=== PATIENT | female | born 1955 | race Caucasian/White ===

== ENCOUNTER 2023-09-28 18:45 | Inpatient (IN) | payer BC, SELFPAY ==
[2023-09-28] VITALS (10 sets, daily range): BP systolic 133–172; BP diastolic 75–107; BMI 25.4
--- NOTE | 2023-09-28 13:44 | ED.GENMED ---
History of Present Illness
General
Chief Complaint: Abdominal Symptoms
Source: patient, records (Records from [facility]) and spouse
Exam Limitations: none
Time Seen by Provider: 09/28/23 13:06
Nursing documentation reviewed up to this point in time: agreed with except (Except as documented-she has only had symptoms for 4 days, has not had diarrhea in fact has been constipated)
Travel History
Have you had any contact with someone who has COVID-19?: No
Do you have any symptoms of coronavirus? Fever > 100 degrees, chills, cough, shortness of breath, sore throat, loss of taste or smell, muscle aches, or headache?: No
History of Present Illness
History of Present Illness:
67-year-old female with a past medical history of hypertension, hypothyroidism who presents to the emergency department for evaluation of abdominal pain associated with nausea and vomiting. Patient reports onset of symptoms (4 days ago) at
around 1 AM�she says she woke up with significant abdominal pain and nausea and had 1 episode of vomiting. She went to ER at [facility] in [place] for evaluation of her symptoms; there she had a CT of the abdomen pelvis and lab work and was
treated symptomatically. I reviewed her CT report and it showed some dilation of the jejunum but no clear signs for bowel obstruction; she was ultimately discharged with Zofran to take as needed. Since that time she has had continued abdominal
pain which she describes as pressure sensation with occasional sharp discomfort. Symptoms are worse when she tries to take food or drink by mouth she says. No relieving factors noted. Associated nausea and multiple episodes of vomiting
particularly when she tries to eat or drink something. She has had constipation�she says she has not had a bowel movement in the past 4 days. She is still passing scant amount of stool. She did try a suppository today for constipation but was not
able to have a bowel movement and did not have any relief of her symptoms. She has not had any fever or chills. Has not had any urinary symptoms. Has not had similar symptoms in the past. She does have a prior surgical history of ,
bladder surgery, hysterectomy.
Review of Systems
Review of Systems
All Other Systems: ROS reviewed and negative except as documented in HPI and ROS
Constitutional: Denies fever or chills
EENT: Denies sore throat or runny nose
Respiratory: Denies cough or trouble breathing
Cardiac: Denies chest pain or palpitations
ABD/GI: Reports abdominal pain, nausea, vomiting and constipated; Denies diarrhea
: Denies dysuria, frequency or flank pain
Musculoskeletal: Denies neck pain or back pain
Neurological: Denies headache, weakness or numbness
Phy Exam
Physical Exam
Physical Exam:
General: Awake, alert, oriented x3; no acute distress
Head: Normocephalic, atraumatic
Eyes: Conjunctiva normal, sclera anicteric
Throat: Airway intact, handling secretions
Neck: Trachea midline, supple without meningismus
Lungs: Clear to auscultation bilaterally, no wheezing, rales, rhonchi
Heart: Regular rate and rhythm, no murmurs, gallops, or rubs
Abd: Soft, slightly distended, diffusely tender somewhat worse periumbilical and left lower quadrant; tiny umbilical hernia easily reducible
Neuro: No gross deficits
Skin: no rash
Extremities: No edema in extremities, equal pulses in all extremities
Scores
Heart Failure Risk
Heart Failure Risk Score: Not Applicable
Heart Score for Chest Pain Patients
STEMI patient?: Not applicable
Withdrawal Assessment of Alcohol
Withdrawal Assessment Completed?: Not applicable
Course
Orders/Labs/Results
Orders:
Orders
09/28/23 13:43
Urinalysis Reflex To Culture Urgent
Date Specimen was Collected: 09/28/23
Time Specimen was Collected: 18:14
Iohexol [Omnipaque] See Protocol PO NOW STA
Morphine Sulfate 4 mg IV NOW STA
Ondansetron Injectable [Zofran] 4 mg IV NOW STA
09/28/23 13:44
CT Abd/pel W Iv And Oral Contr Urgent
Comment:
Reason For Exam: abd pain, distention, N/V, constipation
0.9% Sodium Chloride 1000 ml [Nss] 1,000 ml IV BOLUS
09/28/23 14:00
Complete Blood Count/With Diff Urgent
Comprehensive Metabolic Panel Urgent
Lactate Level [Lactic Acid] Urgent
Lipase Urgent
Magnesium Urgent
09/28/23 17:57
Consult Surgery [SURGICAL CONSULT] Urgent
Consulting Provider: Wally East
Was physician already notified: Yes
NG Tube [GI tube insertion- Treatment] ONCE
09/28/23 18:13
Admit/Transfer Patient As Directed
Co-Sign Provider:
Level of Care: Inpatient admission
Assign to:: Medical/Surgical
Physician / Group: Rubin
Diagnosis: Small Bowel Obstruction
Reason for Hospitalization: NGT, IVFs, Surgical consult
Expected length of stay greater than two midnights?: Yes
ELOS- Estimated Length of Stay in days: 3
I certify the patient meets the requirements for IP care: Yes
ECG [Electrocardiogram (*1)] Urgent
Reason for Study: Abdominal Pain
09/28/23 18:14
Code Status As Directed
Resuscitation Status: Full Code
Abnormal Lab Results
09/28/23
14:00
MPV 12.4 H fL
(7.4-10.4)
Absolute Monos (auto) 0.7 H 10^3/uL
(0.1-0.6)
Sodium 134 L mmol/L
(135-145)
Chloride 93 L mmol/L
(98-107)
BUN 36 H mg/dl
(7-17)
Creatinine 1.2 H mg/dL
(0.6-1.0)
Total Bilirubin 1.4 H mg/dl
(0.2-1.3)
09/28/23 14:00
09/28/23 14:00
Vital Signs
Initial and Last Documented VS:
Initial Vital Signs
Pulse Resp BP Pulse Ox
106 18 135/82 98
09/28/23 12:35 09/28/23 12:35 09/28/23 12:35 09/28/23 12:35
Last Documented Vital Signs
Pulse Resp BP Pulse Ox
106 18 163/96 99
09/28/23 12:35 09/28/23 12:35 09/28/23 16:00 09/28/23 16:01
MDM/Problems Addressed
Differential Diagnosis Includes:
Bowel obstruction, enteritis, ileus, constipation, diverticulitis
MDM/Problems Addressed:
67-year-old female presents for evaluation of abdominal pain associate with nausea, vomiting and constipation that started on . Had CT on at [facility] which showed some dilation of the jejunum but no clear signs of a bowel
obstruction no other acute pathology. Symptoms progressed since then. Normotensive but tachycardic, otherwise normal vitals. Physical exam as above. Plan to place an IV send labs including CBC, CMP, lipase. Check urinalysis. Will send for a CT
of the abdomen pelvis with p.o. and IV contrast. Will treat symptomatically and provide fluids. Monitor closely reassess after the above.
Labs reviewed: CBC unremarkable, CMP shows creatinine 1.2. Lactate normal. CT of the abdomen pelvis shows signs consistent with small bowel obstruction related to Spegelian hernia in the left lower abdomen. Attempted reduction unsuccessfully in
ED. Discussed case with surgery for consultation�they will plan for OR this evening and admit to their service. Will place NG tube here in ER.
Chronic conditions affecting care:
Multiple prior abdominal surgeries�higher risk for bowel obstruction
Acute Exacerbation and/or Progression of Chronic Illness:
Acutely hypertensive
Acute Exacerbation and/or Progression of Chronic Illness: HTN
*Radiology
Radiology exam reviewed: radiology read reviewed
*Pulse Oximetry
Patient hypoxic: no
*Critical Care Note
Total Time (30-74mins, 75-104mins- exclusive of procedures): Not Applicable
Data Reviewed
Review of Other/Old Records Reveals: Records (Reviewed external records from [facility] including lab work and CT report)
Source: patient and spouse
Patient Management
Discussion with other providers: Electronic Gluer (Discussed with general surgery)
Escalation/DeEscalation of care consider admission/obs:
Admission indicated
ED Attending Note
-
Portions of this chart may have been created with voice recognition software.� Occasional wrong word or��sound alike� substitutions may have occurred due to the inherent limitations of voice recognition software.
Discharge Plan
Departure
Patient Disposition: Admit
Date of Disposition: 09/28/23
Time of Disposition: 18:03
Admit to doctor: Cruzito
Presentation/result/management discussed w/ accepting MD/DO: surgery
Discharge Problem:
Small bowel obstruction, Spigelian hernia
Referrals:
Hannah Rodríguez MD [Family Provider] -
Interventions
Interventions:
*Risk Screen - Suicide Last Done: 09/28/23 13:30
*General Assessment Last Done: 09/28/23 13:30
*Neglect/Abuse Screening Last Done: 09/28/23 13:30
*ED COVID-19 Vaccine History Last Done: 09/28/23 12:35
HN-Kzivza-Aefwzltury Assessment Last Done: 09/28/23 13:30
Discharge Date and Time
Print Language: TURKISH
[2023-09-28] MEDS: ZOFRAN 4 MG IV (14:10)
[2023-09-28] MEDS: OMNIPAQUE 50 ML PO (14:11)
[2023-09-28] MEDS: MORPHINE SULFATE 4 MG IV (14:11)
[2023-09-28] MEDS: NSS 1000 IV ×2 (14:12→21:07)
[2023-09-28 14:17] LABS: % Basophils 0.6 % (0-2); % Eosinophils 0.9 % (0-6); % Immature Granulocytes 0.2 % (0-0.5); % Monocytes 7.8 % (1.7-9.3); % Neutrophils 63.5 % (42.2-75.2); Absolute Basophils 0.1 10^3/uL (0-0.2); Absolute Eosinophils 0.1 10^3/uL (0-0.7); Absolute Lymphocytes 2.4 10^3/uL (1.2-3.4); Absolute Monocytes 0.7 10^3/uL (0.1-0.6); Absolute Neutrophils 5.6 10^3/uL (1.4-6.5); Hematocrit 44.6 % (37.0-47.0); Mean Corp Hgb Conc. 33.6 g/dL (33.0-37.0); Mean Corpuscular Hgb 30.2 pg (27.0-31.0); Mean Corpuscular Volume 89.9 fL (81.0-99.0); Mean Platelet Volume 12.4 fL (7.4-10.4); Nucleated Red Blood Cells % 0 %; Platelet Count 149 10^3/uL (130-400); Red Blood Cell Count 4.96 10^6/uL (4.20-5.40); Red Cell Dist. Width 13.7 % (11.5-14.5); White Blood Cell Count 8.8 10^3/uL (4.8-10.8)
[2023-09-28 14:31] LABS: Albumin 4.6 g/dl (3.5-5.0); Carbon Dioxide 29 mmol/L (22-30); Estimated Creatinine Clearance 38 ml/min; Total Bilirubin 1.4 mg/dl (0.2-1.3); Total Protein 7.6 g/dl (6.3-8.2); eGFR 49.92
[2023-09-28 14:45] LABS: ALT (SGPT) 14 U/L (0-35); AST (SGOT) 29 U/L (14-36); Alkaline Phosphatase 84 U/L (38-126); Blood Urea Nitrogen 36 mg/dl (7-17); Calcium 9.8 mg/dl (8.4-10.2); Chloride 93 mmol/L (98-107); Glucose 95 mg/dl (70-99); Sodium 134 mmol/L (135-145)
[2023-09-28 15:24] LABS: Lipase 164 U/L (23-300)
--- NOTE | 2023-09-28 18:42 | PHANOTE ---
Med Rec Note:
Unable to confirm a recent fill for Carvedilol 40mg, Dr demarco shows last fill for this med on 10/20/22, [facility] closed at time of interview. Called [facility] (Pharmacist Line [phone]), they do not fill this medication.
[2023-09-28 18:58] LABS: Urine Albumin Trace (Neg - Trace); Urine Bilirubin 1+ (Negative); Urine Character Clear (Clear); Urine Color Yellow; Urine Glucose Negative (Negative); Urine Ketone 2+ (Negative); Urine Leukocyte Negative (Negative); Urine Nitrite Negative (Negative); Urine Occult Blood Negative (Negative); Urine Specific Gravity 1.015 (<1.030); Urine Urobilinogen Negative (Neg - 1+)
--- NOTE | 2023-09-28 19:02 | HPS.HSE ---
Family Physician
-
Family Physician: Hannah Rodríguez
Chief Complaint
-
Abdominal pain nausea vomiting
History of Present Illness
Patient is a 67-year-old female who was working early in the a.m. on when she began taking note of acute onset left-sided abdominal pain and crampiness. She observed it into Friday when she began developing nausea vomiting. She saw her
primary care physician and was referred for emergency department evaluation elsewhere. Workup was unremarkable and she was discharged. Through the weekend she is continued with persistent swelling and discomfort localized to the left lower
quadrant with intermittent colicky abdominal pain and recurrent nausea vomiting unable to tolerate any p.o. intake. She comes to the [facility] emergency department now for evaluation and workup is notable for an incarcerated left-sided
spigelian hernia
Medical History
Past Medical History
Past Medical History: Reports HTN, Hypercholesterolemia, Hypothyroidism, Psychiatric and Other (Osteopenia)
Past Surgical History: Reports Other ( complicated by bladder injury; robotic assisted laparoscopic hysterectomy)
Social History
Tobacco: Non-smoker
Alcohol: None
Employment: Employed
Family History
Family History: Not pertinent
Allergies / Home Medications
Allergies reflects when Allergies were last updated in [facility].
Home Medications with original date entered in [facility]
Allergy/Medication List:
Allergies
Allergy/AdvReac Type Severity Reaction Status Date / Time
No Known Allergies Allergy Verified 09/28/23 12:39
�Medication �Instructions �Recorded �Confirmed �Type
Adrenotone 1 cap PO DAILY 09/28/23 09/28/23 History
DHEA 1 cap PO QPM 09/28/23 09/28/23 History
Hcystene 1 cap PO QPM 09/28/23 09/28/23 History
Strontium 1 cap PO DAILY 09/28/23 09/28/23 History
Vitamin D Plus K2 1 tab PO DAILY 09/28/23 09/28/23 History
carvedilol phosphate 40 mg 40 mg PO QPM 09/28/23 History
capsule,ext.[id number] multiphase
melatonin 1 cap PO QPM 09/28/23 09/28/23 History
naproxen 500 mg tablet 500 mg PO BID 09/28/23 09/28/23 History
ondansetron HCl 4 mg tablet 4 mg PO DAILY PRN nausea/vomiting 09/28/23 09/28/23 History
phosphatidylserine 1 cap PO QPM 09/28/23 09/28/23 History
rosuvastatin 5 mg tablet 5 mg PO QPM 09/28/23 09/28/23 History
sertraline 100 mg tablet 100 mg PO DAILY 09/28/23 09/28/23 History
sucralfate 1 gram tablet 1 g PO BID 09/28/23 09/28/23 History
telmisartan 80 mg tablet 80 mg PO QPM 09/28/23 09/28/23 History
thyroid (pork) 15 mg tablet (FINISHED HARDWARE E[employer]OR 15 mg PO DAILY 09/28/23 09/28/23 History
Thyroid)
thyroid (pork) 60 mg tablet (FINISHED HARDWARE ERECTOR 60 mg PO DAILY 09/28/23 09/28/23 History
Thyroid)
Review of Systems
-
History Source: Patient
A 12 point ROS was completed and negative except as noted: Yes
Physical Exam
Vital Signs
Vital Signs
Temp Pulse Resp BP Pulse Ox
98.3 F 106 18 163/96 99
09/28/23 19:01 09/28/23 12:35 09/28/23 12:35 09/28/23 16:00 09/28/23 16:01
Physical Exam
General: Well Developed, Well Nourished, No Apparent Distress, Comfortable and Conversant
HEENT: NormoCephalic, Anicteric, Moist mucous membranes and Atraumatic
Respiratory: Non Labored Respirations
Cardiac: Regular Rhythm
GI: Soft, Tender (Tenderness on palpation localizing left lower quadrant but no rebound rigidity or guarding.), Distended (Mild) and Other (Left lower quadrant Spigelman hernia, incarcerated)
Skin: Warm
Neuro: AO x 3
Psych: Calm
Laboratory Results
-
09/28/23 14:00
09/28/23 14:00
Laboratory Results
Lactic Acid 1.0 mmol/L (0.7-2.0) 09/28/23 14:00
Total Bilirubin 1.4 mg/dl (0.2-1.3) H 09/28/23 14:00
AST 29 U/L (14-36) 09/28/23 14:00
ALT 14 U/L (0-35) 09/28/23 14:00
Alkaline Phosphatase 84 U/L (38-126) 09/28/23 14:00
Lipase 164 U/L (23-300) 09/28/23 14:00
Data Reviewed
-
CT Scan: Image Personally Visualized and interpreted, Report Reviewed by me, Discussed with Physician, Discussed with Patient and Discussed with Family
Lab Data: Labs Reviewed by me
Impression/Plan
-
IMPRESSION: 67-year-old female presenting with acutely incarcerated left-sided spiculated hernia with secondary small bowel obstruction and probable strangulation.
Acute kidney injury secondary to dehydration with BUN 36 and creatinine of 1.2
Hyponatremia and hypochloremia secondary to nausea vomiting
Past medical history hypertension, hypothyroidism, osteopenia, hypercholesterolemia
Reviewed with patient and her significant other at bedside CT imaging and physical examination consistent with incarcerated left-sided spigelian hernia with resultant small bowel obstruction and presumed high risk for strangulation given acute event
started 3 days ago.
Given high risk for bowel compromise/threat recommended urgent surgical intervention. Open repair left-sided incarcerated spigelian hernia, probable small bowel resection, possible mesh. We discussed anticipated operative procedure and potential
operative findings in detail including her management. Reviewed alternative treatment options, benefits and potential risk such as but not limited to bleeding, infectious or wound related complications, iatrogenic injury to surrounding viscera,
anastomotic related complications. We discussed typical postoperative recovery and hospitalization including but not limited to Washington catheter for surgery, NG tube placement, postoperative bowel rest awaiting GI recovery.
Any of the patient's or her spouse's concerns or questions were fully addressed and written informed consent was obtained.
PLAN: Admit
OR team called -open repair incarcerated left spiculated hernia with probable small bowel resection
Invanz on-call to the OR
[place] will be placed intraoperatively
NG tube placement intraoperatively
IV fluid resuscitation perioperatively
SCDs for VTE prophylaxis
--- NOTE | 2023-09-28 20:54 | W.SUR.PREOP ---
Pre-Operative Surgical Note
-
I have examined this patient prior to the performance of the scheduled procedure.
The patient's condition is unchanged from the time of the current History and
Physical and the patient is able to undergo the scheduled procedure.
--- NOTE | 2023-09-28 20:55 | W.IMMPOSTOP ---
Addendum entered and electronically signed by Wally East MD 09/28/23 21:19:
#[id number]
Original Note:
Surgical Immed Post Op Note
-
Primary Surgeon: Cruzito
Assisting Surgeon: None
Pre-op Diagnosis: Incarcerated LLQ spigelian hernia with SBO and probable strangulation
Post-op Diagnosis: Incarcerated LLQ spigelian hernia with SBO and strangulation
Procedure Performed: Open primary repair incarcerated LLQ spigelian hernia; small bowel resection
Anesthesia Type: GETA + 1% lido w/ epi/0.25% Marcaine
Specimen / Cultures: segment small bowel
Estimated Blood Loss: 12mL
Complications: none immediate
Operative Findings: incarcerated left spigelian hernia ~2cm defect; short segment SB incarcerated with resultant stricture. proximal and distal areas strictured with signs of ischemia from being incarcerated 72+hrs. SBR with side to side stapled
anastomosis. primary repair of hernia.
Plan: IVF hydration, NGT decompression until GI recovery, Washington until ambulating and post op pain controlled as well as monitoring I/O's overnight
updated post op in [facility]
[2023-09-28] MEDS: LOPRESSOR 55 MG IV (23:27)
[2023-09-29] VITALS (7 sets, daily range): BP systolic 99–137; BP diastolic 60–73
--- NOTE | 2023-09-29 04:18 | PTCARENOTE ---
Pt admitted to 2S @ approximately 2200. pain rating at 2-3 out of 10 at incision site which pt states is acceptable. Surgical glue intact at incision site. NSS infusing at 110mL/hr per order. NG tube to low intermittent suction, drainage
black/red/green. Washington in place, draining clear light yellow urine. Apical pulse regular.
[2023-09-29] MEDS: LOPRESSOR 55 MG IV ×4 (04:53→21:22)
[2023-09-29 05:01] LABS: Hematocrit 35.4 % (37.0-47.0); Mean Corp Hgb Conc. 33.6 g/dL (33.0-37.0); Mean Corpuscular Hgb 30.6 pg (27.0-31.0); Mean Platelet Volume 12.7 fL (7.4-10.4); Platelet Count 137 10^3/uL (130-400); Red Blood Cell Count 3.89 10^6/uL (4.20-5.40); Red Cell Dist. Width 13.9 % (11.5-14.5); White Blood Cell Count 14.3 10^3/uL (4.8-10.8)
[2023-09-29 05:06] LABS: Hemoglobin 11.9 g/dL (12.0-16.0)
[2023-09-29 05:25] LABS: Blood Urea Nitrogen 27 mg/dl (7-17); Calcium 8.3 mg/dl (8.4-10.2); Carbon Dioxide 24 mmol/L (22-30); Chloride 95 mmol/L (98-107); Estimated Creatinine Clearance 46 ml/min; Glucose 87 mg/dl (70-99); Potassium 3.9 mmol/L (3.5-5.1); Sodium 133 mmol/L (135-145); eGFR > 60.00
[2023-09-29 05:33] LABS: Hematocrit 34.1 % (37.0-47.0); Hemoglobin 11.4 g/dL (12.0-16.0)
[2023-09-29] MEDS: NSS 1000 IV ×2 (07:51→14:01)
[2023-09-29] MEDS: PROTONIX IV 40 MG IV (07:55)
[2023-09-29] MEDS: NSS (PRESERVATIVE FREE) 10 ML IV (07:55)
[2023-09-29] MEDS: OFIRMEV 100 IV ×2 (08:12→22:22)
--- NOTE | 2023-09-29 10:03 | W.PN.GS2 ---
Today's Communication / Plan
-
NPO with NGT
Continue IVF
Assessment / Plan
-
This is a 67-year-old female with h/o hypothyroid/htn who presented with acutely incarcerated left-sided spigelian hernia with secondary small bowel obstruction and strangulation.
POD #1 Open primary repair incarcerated LLQ spigelian hernia; small bowel resection
KRISTY secondary to dehydration: resolved. Continue IVF
Hyponatremia/hypochloremia/hypocalcemia are mild and secondary to poor po intake/GI losses/dehydration
Mild acute anemia post operatively likely from expected intraoperative losses and hemodilution
AFVSS
NGT with bilious outputs/await GI recovery
--Continue NPO with NGT to LIWS
--Continue IVF
--Multimodal analgesics
--IV metoprolol scheduled until able to resume PO carvedilol, place telemetry as per protocol
--Holding PO home meds
--Continue salinas likely through today, VT once UO increased
--Lovenox/SCD's for VTE ppx
Subjective Data
-
Date of Service: September 29, 2023
Patient seen and examined at bedside with Dr. Velazco. Derek n/v. Some generalized abdominal discomfort/soreness. No passage of flatus or stool as of yet.
Objective Data
-
Intake and Output
09/28/23 09/29/23 09/30/23
06:59 06:59 06:59
Intake Total 320 / 320
Output Total 715 / 715
Balance -395 / -395
Intake:
Oral fluids 180 / 180
IV fluids (Total) 50 / 50
normo 50 / 50
Amount instilled into GI Tube ( 90 / 90
Total)
Searcy Sump 90 / 90
Output:
Gastrointestinal tube output ( 340 / 340
Total)
Searcy Sump 340 / 340
Urine, Salinas 375 / 375
Vital Signs
Temp Pulse Resp BP Pulse Ox
97.7 F 69 18 146/76 96
09/29/23 07:30 09/29/23 09:48 09/29/23 07:30 09/29/23 09:48 09/29/23 08:00
Lab Results
09/29/23 05:22
09/29/23 04:06
Calcium 8.3 mg/dl (8.4-10.2) L D 09/29/23 04:06
Magnesium 2.0 mg/dl (1.6-2.3) 09/28/23 14:00
Total Bilirubin 1.4 mg/dl (0.2-1.3) H 09/28/23 14:00
AST 29 U/L (14-36) 09/28/23 14:00
ALT 14 U/L (0-35) 09/28/23 14:00
Alkaline Phosphatase 84 U/L (38-126) 09/28/23 14:00
Total Protein 7.6 g/dl (6.3-8.2) 09/28/23 14:00
Albumin 4.6 g/dl (3.5-5.0) 09/28/23 14:00
Physical Exam
-
NAD
ABD soft, mild distention, expected incisional tenderness. NGT with bilious drainage
Incisional dressing intact
--- NOTE | 2023-09-29 10:11 | CM ---
Initial assessment completed with patient who lives with her in a 2 story townhouse with no basement, 1 step to enter, B/B on and 1/2 bath on . [employer] patient was independent and drove, does not work. She has a SPC in the home but does
not use, no in-home services. No history of psychiatric hospitalizations. No HC POA. Pharmacy is [facility] [address] [facility] in [place]. PCP is Dr. Lisset Rodríguez. Anticipate no needs at discharge. Will continue to follow should needs change.
[2023-09-29] MEDS: LOVENOX 40 MG SC (17:05)
[2023-09-29] MEDS: DILAUDID 0.25 MG IV (17:05)
[2023-09-30] MEDS: NSS 1000 IV ×3 (00:04→17:01)
[2023-09-30 03:30] VITALS: BP 130/72
[2023-09-30] MEDS: LOPRESSOR 55 MG IV ×4 (04:52→20:59)
[2023-09-30 05:55] LABS: Hematocrit 26.1 % (37.0-47.0); Hemoglobin 8.7 g/dL (12.0-16.0); Mean Corp Hgb Conc. 33.3 g/dL (33.0-37.0); Mean Corpuscular Hgb 30.5 pg (27.0-31.0); Mean Corpuscular Volume 91.6 fL (81.0-99.0); Mean Platelet Volume 12.9 fL (7.4-10.4); Platelet Count 94 10^3/uL (130-400); Red Blood Cell Count 2.85 10^6/uL (4.20-5.40); Red Cell Dist. Width 14.1 % (11.5-14.5); White Blood Cell Count 7.2 10^3/uL (4.8-10.8)
[2023-09-30 06:22] LABS: Blood Urea Nitrogen 24 mg/dl (7-17); Calcium 7.7 mg/dl (8.4-10.2); Carbon Dioxide 24 mmol/L (22-30); Chloride 102 mmol/L (98-107); Estimated Creatinine Clearance 51 ml/min; Glucose 76 mg/dl (70-99); Potassium 3.5 mmol/L (3.5-5.1); Sodium 133 mmol/L (135-145); eGFR > 60.00
[2023-09-30 07:30] VITALS: BP 135/70
[2023-09-30] MEDS: PROTONIX IV 40 MG IV (07:33)
[2023-09-30] MEDS: NSS (PRESERVATIVE FREE) 10 ML IV (07:34)
--- NOTE | 2023-09-30 08:13 | W.PN.GS2 ---
Addendum entered and electronically signed by Lenny Capellan MD 09/30/23 13:50:
Hb stable and platelets improved. No further work-up or management changes from GS perspective.
NGT clamped for 4 hours with no symptoms and minimal output on return to suction. NGT removed.
Addendum entered and electronically signed by Lenny Capellan MD 09/30/23 09:10:
Acute anemia multifactorial blood loss and hemodilution
Original Note:
Today's Communication / Plan
-
--Repeat CBC this afternoon given Hb and platelet drop
--Clamp trial of NGT
--Pain control: Tylenol, IV Dilaudid PRN, holding on Toradol given KRISTY
--Washington removed, DTVI
Assessment / Plan
-
Patient is a 67 yo F p/w acutely incarcerated left-sided spigelian hernia with secondary small bowel obstruction and strangulation.
POD#2 Open primary repair incarcerated LLQ spigelian hernia; small bowel resection
KRISTY secondary to dehydration: resolved. Continue IVF
Hyponatremia/hypochloremia/hypocalcemia are mild and secondary to poor PO intake/GI losses/dehydration
Mild acute anemia post operatively likely from expected intraoperative losses and hemodilution, recheck ordered for this afternoon, asymptomatic and HR BP stable
Thrombocytopenia, would consider HIT if true drop on repeat CBC
NGT with minimal non-bilious outputs. Passing some flatus. Plan for clamp trial today.
--Repeat CBC this afternoon given Hb and platelet drop
--Clamp trial of NGT
--Continue IVF
--Pain control: Tylenol, IV Dilaudid PRN, holding on Toradol given KRISTY
--IV Metoprolol scheduled until able to resume PO Carvedilol, place telemetry as per protocol
--Holding PO home meds
--Washington removed, DTV
--Lovenox/SCD's for VTE ppx
--PPI for GI
Subjective Data
-
Date of Service: September 30, 2023
Feels improved, less pain. No nausea or vomiting. No worsening abdominal distention or bloating. Reports passing small amounts of flatus, no BM. Minimal ambulation. Washington removed, due to void. No fevers. No dizziness or lightheadedness.
Objective Data
-
Intake and Output
09/29/23 09/30/23 10/01/23
06:59 06:59 06:59
Intake Total 320 / 320 3130 / 3130
Output Total 715 / 715 1025 / 1025
Balance -395 / -395 2104 / 5
Intake:
Oral fluids 180 / 180 0 / 0
IV fluids (Total) 50 / 50 2640 / 2640
normo 50 / 50
IV piggybacks 310 / 310
Amount instilled into GI Tube ( 90 / 90 180 / 180
Total)
Pickett Sump 90 / 90 180 / 180
Output:
Gastrointestinal tube output ( 340 / 340 375 / 375
Total)
Pickett Sump 340 / 340 375 / 375
Urine, [place] 375 / 375 650 / 650
Vital Signs
Temp Pulse Resp BP Pulse Ox
98.8 F 57 16 130/72 97
09/30/23 03:30 09/30/23 03:30 09/30/23 03:30 09/30/23 04:52 09/30/23 03:30
Lab Results
09/30/23 05:26
Calcium 7.7 mg/dl (8.4-10.2) L 09/30/23 05:26
Magnesium 2.0 mg/dl (1.6-2.3) 09/28/23 14:00
Total Bilirubin 1.4 mg/dl (0.2-1.3) H 09/28/23 14:00
AST 29 U/L (14-36) 09/28/23 14:00
ALT 14 U/L (0-35) 09/28/23 14:00
Alkaline Phosphatase 84 U/L (38-126) 09/28/23 14:00
Total Protein 7.6 g/dl (6.3-8.2) 09/28/23 14:00
Albumin 4.6 g/dl (3.5-5.0) 09/28/23 14:00
Physical Exam
-
Gen: NAD
HEENT: non-bilious gastric outputs
Abd: soft, mild/moderate tenderness to palpation, minimal distension, tympanitic in upper abdomen, non-peritoneal, incision c/d/i - no erythema, ecchymosis or drainage
--- NOTE | 2023-09-30 08:49 | PN.CDI ---
CDI
- -
CDI:
Physician Documentation Request
Admit Date: 09/28/23 18:45
Dear Doctor Marilia,
Patient admitted with a hernia.
09/29 General Surgery PN: 'Mild acute anemia post operatively likely from expected intraoperative losses and hemodilution, recheck ordered for this afternoon, asymptomatic and HR BP stable'
Laboratory Tests
09/28/23 09/29/23 09/30/23
14:00 04:06 05:25
Hgb 15.0 11.9 L 8.7 L
Hct 44.6 35.4 L 26.1 L
Based on the above, could you clarify, in your progress note, which of the following is the most likely type of anemia you are evaluating, monitoring and/or treating?
Acute anemia multifactorial blood loss and hemodilution
Other
Use of terms such as suspected, likely, concern for, or probable (associated with a specific diagnosis that is being evaluated, monitored, or treated as if it exists) are acceptable and can be coded in the inpatient setting, when documented at the
time of discharge.
Thank you,
Lety Barrow RN, BSN
CDI Specialist
Available via [place] text
Please use your independent medical judgment in providing your response.
[2023-09-30 11:15] VITALS: BP 128/74
--- NOTE | 2023-09-30 11:25 | PTCARENOTE ---
Patient voided 150mls clear dark yellow urine in bathroom.
[2023-09-30 13:03] LABS: Hematocrit 27.7 % (37.0-47.0); Hemoglobin 9.1 g/dL (12.0-16.0); Mean Corp Hgb Conc. 32.9 g/dL (33.0-37.0); Mean Corpuscular Hgb 30.3 pg (27.0-31.0); Mean Corpuscular Volume 92.3 fL (81.0-99.0); Mean Platelet Volume 12.5 fL (7.4-10.4); Platelet Count 107 10^3/uL (130-400); Red Cell Dist. Width 14.1 % (11.5-14.5); White Blood Cell Count 7.5 10^3/uL (4.8-10.8)
--- NOTE | 2023-09-30 14:28 | CM ---
NGT and salinas removed. Discharge Plan of Care: Home with no additional skilled services.
[2023-09-30 15:14] VITALS: BP 132/69
[2023-09-30] MEDS: LOVENOX 40 MG SC (17:02)
[2023-09-30 19:00] VITALS: BP 121/75
[2023-09-30] MEDS: NSS IV (22:28)
[2023-09-30 23:14] VITALS: BP 135/76
[2023-10-01] VITALS (7 sets, daily range): BP systolic 119–141; BP diastolic 61–85
[2023-10-01] MEDS: LOPRESSOR 55 MG IV ×3 (03:04→22:31)
[2023-10-01 04:56] LABS: Hematocrit 25.4 % (37.0-47.0); Hemoglobin 8.4 g/dL (12.0-16.0); Mean Corp Hgb Conc. 33.1 g/dL (33.0-37.0); Mean Corpuscular Hgb 29.9 pg (27.0-31.0); Mean Corpuscular Volume 90.4 fL (81.0-99.0); Mean Platelet Volume 12.7 fL (7.4-10.4); Platelet Count 101 10^3/uL (130-400); Red Blood Cell Count 2.81 10^6/uL (4.20-5.40); Red Cell Dist. Width 13.6 % (11.5-14.5); White Blood Cell Count 6.4 10^3/uL (4.8-10.8)
[2023-10-01 05:20] LABS: Blood Urea Nitrogen 13 mg/dl (7-17); Calcium 7.9 mg/dl (8.4-10.2); Carbon Dioxide 21 mmol/L (22-30); Chloride 103 mmol/L (98-107); Estimated Creatinine Clearance 76 ml/min; Glucose 73 mg/dl (70-99); Potassium 3.7 mmol/L (3.5-5.1); Sodium 134 mmol/L (135-145); eGFR > 60.00
--- NOTE | 2023-10-01 07:33 | W.PN.GS2 ---
Today's Communication / Plan
-
`
Assessment / Plan
-
Patient is a 67 yo F p/w acutely incarcerated left-sided spigelian hernia with secondary small bowel obstruction and strangulation.
POD#3 Open primary repair incarcerated LLQ spigelian hernia; small bowel resection
KRISTY secondary to dehydration: resolved
Hyponatremia/hypochloremia/hypocalcemia are mild and secondary to poor PO intake/GI losses/dehydration
Acute anemia post operatively likely from expected intraoperative losses and hemodilution - asymptomatic and HR BP stable
Thrombocytopenia - stable/improved
Plan: Clear liquid diet today awaiting further GI recovery
reduce IVF NSS to 60ml/hr
--Pain control: Tylenol, IV Dilaudid PRN, holding on Toradol given KRISTY
--IV Metoprolol scheduled until able to resume PO Carvedilol, place telemetry as per protocol
--Holding PO home meds
--Lovenox/SCD's for VTE ppx
--PPI for GI
Subjective Data
-
Date of Service: October 01, 2023
pt seen and examined
voiding
+flatus, no BM
post op pain controlled
feels swollen
Objective Data
-
Intake and Output
09/30/23 10/01/23 10/02/23
06:59 06:59 06:59
Intake Total 3130 / 3130 2670 / 2670
Output Total 1025 / 1025 740 / 740
Balance 2105 / 2105 193 / 193
Intake:
Oral fluids 0 / 0
IV fluids (Total) 2640 / 2640 2420 / 2420
IV piggybacks 310 / 310 220 / 220
Amount instilled into GI Tube ( 180 / 180 30 / 30
Total)
[place] Sump 180 / 180 30 / 30
Output:
Gastrointestinal tube output ( 375 / 375 50 / 50
Total)
[place] Sump 375 / 375 50 / 50
Urine, [place] 650 / 650
Urine, Voided 690 / 690
Other:
Number of approximated MODERATE 2
amounts of urine
Number of approximated LARGE 2
amounts of urine
Vital Signs
Temp Pulse Resp BP Pulse Ox
98.6 F 62 16 141/84 99
10/01/23 03:09 10/01/23 03:09 10/01/23 03:09 10/01/23 03:09 10/01/23 03:09
Lab Results
10/01/23 04:31
10/01/23 04:31
Calcium 7.9 mg/dl (8.4-10.2) L 10/01/23 04:31
Magnesium 2.0 mg/dl (1.6-2.3) 09/28/23 14:00
Total Bilirubin 1.4 mg/dl (0.2-1.3) H 09/28/23 14:00
AST 29 U/L (14-36) 09/28/23 14:00
ALT 14 U/L (0-35) 09/28/23 14:00
Alkaline Phosphatase 84 U/L (38-126) 09/28/23 14:00
Total Protein 7.6 g/dl (6.3-8.2) 09/28/23 14:00
Albumin 4.6 g/dl (3.5-5.0) 09/28/23 14:00
Physical Exam
-
NAD AAOx3
ABD: softly distended, minimal TTP LLQ
incision with glue dressing, no erythema, no drainage
[2023-10-01] MEDS: NSS (PRESERVATIVE FREE) 10 ML IV (08:44)
[2023-10-01] MEDS: PROTONIX IV 40 MG IV (08:44)
[2023-10-01] MEDS: ZOLOFT 100 MG PO (12:13)
[2023-10-01] MEDS: ARMOUR THYROID 15 MG PO (12:15)
[2023-10-01] MEDS: ARMOUR THYROID 60 MG PO (12:16)
[2023-10-01] MEDS: NSS 1000 IV (14:50)
[2023-10-01] MEDS: TYLENOL 650 MG PO (14:50)
[2023-10-01] MEDS: LOVENOX 40 MG SC (17:09)
[2023-10-01] MEDS: LOPRESSOR IV (17:11)
[2023-10-02 02:57] VITALS: BP 128/70
[2023-10-02 04:34] VITALS: BP 141/74
[2023-10-02] MEDS: LOPRESSOR 55 MG IV ×2 (04:36→09:15)
[2023-10-02 06:37] VITALS: BP 126/68
[2023-10-02] MEDS: NSS 1000 IV (06:55)
[2023-10-02] MEDS: NSS (PRESERVATIVE FREE) 10 ML IV (09:13)
[2023-10-02] MEDS: PROTONIX IV 40 MG IV (09:14)
[2023-10-02] MEDS: ARMOUR THYROID 60 MG PO (09:14)
[2023-10-02] MEDS: ARMOUR THYROID 15 MG PO (09:14)
[2023-10-02] MEDS: ZOLOFT 100 MG PO (09:15)
--- NOTE | 2023-10-02 09:29 | W.PN.GS2 ---
Today's Communication / Plan
-
`
Assessment / Plan
-
Patient is a 67 yo F p/w acutely incarcerated left-sided spigelian hernia with secondary small bowel obstruction and strangulation.
POD#4 Open primary repair incarcerated LLQ spigelian hernia; small bowel resection
AFVSS
doing well post op
Plan: low residue diet
cap IV
PO meds
okay to shower
take off tele
possible d/c in PM
Subjective Data
-
Date of Service: October 02, 2023
pt seen and examined
minimal post op pain/discomfort
no nausea
samuel diet advancement
+fl and 2 BMs - small,loose yesterday
Objective Data
-
Intake and Output
10/01/23 10/02/23 10/03/23
06:59 06:59 06:59
Intake Total 2670 / 2670 1750 / 1750
Output Total 740 / 740
Balance 1930 / 1930 1750 / 1750
Intake:
Oral fluids 260 / 260
IV fluids (Total) 2420 / 2420 1340 / 1340
IV piggybacks 220 / 220 150 / 150
Amount instilled into GI Tube ( 30 / 30
Total)
[place] Sump 30 / 30
Output:
Gastrointestinal tube output ( 50 / 50
Total)
[place] Sump 50 / 50
Urine, Voided 690 / 690
Other:
Number of approximated MODERATE 2 6
amounts of urine
Number of approximated LARGE 2
amounts of urine
Vital Signs
Temp Pulse Resp BP Pulse Ox
98.8 F 60 18 126/68 97
10/02/23 06:37 10/02/23 09:15 10/02/23 06:37 10/02/23 06:37 10/02/23 06:37
Lab Results
10/01/23 04:31
10/01/23 04:31
Calcium 7.9 mg/dl (8.4-10.2) L 10/01/23 04:31
Magnesium 2.0 mg/dl (1.6-2.3) 09/28/23 14:00
Total Bilirubin 1.4 mg/dl (0.2-1.3) H 09/28/23 14:00
AST 29 U/L (14-36) 09/28/23 14:00
ALT 14 U/L (0-35) 09/28/23 14:00
Alkaline Phosphatase 84 U/L (38-126) 09/28/23 14:00
Total Protein 7.6 g/dl (6.3-8.2) 09/28/23 14:00
Albumin 4.6 g/dl (3.5-5.0) 09/28/23 14:00
Physical Exam
-
NAD AAOx3
ABD: soft, ND, minimal tenderness
no R/R/G
incisions with glue dressings
[2023-10-02 15:00] VITALS: BP 136/87
--- NOTE | 2023-10-02 15:15 | W.PN.SURGUPD ---
Surgical Update
Surgical Update
pt doing well
samuel PO intake
more BMs today; some black color - likely reflective of prior anastomotic bleeding that stopped
stable for d/c home
instructions reviewed
--- NOTE | 2023-10-02 15:21 | W.DS.TRANS ---
Addendum entered and electronically signed by JOAN Gastelum 10/03/23 09:51:
Dictated #[id number]
Original Note:
DC Summary - Grocery Clerk
-
Discharge Instructions:
Discharge Diagnosis/Procedures Incarcerated Spigelian hernia with resultant
small bowel obstruction and strangulation status
post open primary repair of hernia with small
bowel resection
Diet Low Fiber
Additional Diets Smaller portions and low fiber/low residue foods
are recommended for the first few weeks postop.
May supplement with protein shakes/drinks.
Activity No strenuous activity
Additional Activity Do not lift more than 20 lbs for 4 weeks or
until advised at your post operative appointment
Bathing Restrictions OK to Shower
Wound Care Glue at surgical sites typically peels off in 2
to 3 weeks
Instructions:
Stand-Alone Forms:
Changes to Home Medications: No
Discharge Medications:
DC Medications w/original date entered in [employer]
Adrenotone 1 cap PO DAILY 09/28/23
DHEA 1 cap PO QPM 09/28/23
Hcystene 1 cap PO QPM 09/28/23
Strontium 1 cap PO DAILY 09/28/23
Vitamin D Plus K2 1 tab PO DAILY 09/28/23
carvedilol phosphate 40 mg capsule,[id number] multiphase 40 mg PO QPM 09/28/23
melatonin 1 cap PO QPM 09/28/23
naproxen 500 mg tablet 500 mg PO BID 09/28/23
ondansetron HCl 4 mg tablet 4 mg PO DAILY PRN nausea/vomiting 09/28/23
phosphatidylserine 1 cap PO QPM 09/28/23
rosuvastatin 5 mg tablet 5 mg PO QPM 09/28/23
sertraline 100 mg tablet 100 mg PO DAILY 09/28/23
sucralfate 1 gram tablet 1 g PO BID 09/28/23
telmisartan 80 mg tablet 80 mg PO QPM 09/28/23
thyroid (pork) 15 mg tablet (OPTICAL ENGINEER Thyroid) 15 mg PO DAILY 09/28/23
thyroid (pork) 60 mg tablet (OPTICAL ENGINEER Thyroid) 60 mg PO DAILY 09/28/23
acetaminophen 325 mg tablet 650 mg (2 x 325 mg) PO Q4HPRN PRN mild pain #1 tab 10/02/23
tramadol 50 mg tablet 50 mg PO Q6HPRN PRN severe pain/breakthrough pain #7 tabs 10/02/23
Home Medication Changes
Pending Results: No
--- NOTE | 2023-10-03 08:36 | CM ---
addendum late entry for 10/03/23.met with patient at bedside.patient is sp llq hernia repair/sbo.she is tolerating a low residue diet.stable for dc home with no needs.family to transport home.patient signed medicare letter.
== END 2023-10-02 16:31 | disposition home or self-care (01) | DRG 330 ==
LOC: 2 SOUTH 18:45
PROVIDERS: Nurse Practitioner Family; Surgery; ADMITTING PHYSICIAN Surgery; EMERGENCY PHYSICIAN Emergency Medicine; FAMILY PHYSICIAN Internal Medicine
PROC: 0DB80ZZ Excision of Small Intestine, Open Approach (ICD-10-PCS; 2023-09-28)
DX: K43.6 Other and unspecified ventral hernia with obstruction, without gangrene (principal); D69.6 Thrombocytopenia, unspecified; D62 Acute posthemorrhagic anemia; E87.1 Hypo-osmolality and hyponatremia; N17.9 Acute kidney failure, unspecified; E86.0 Dehydration; E87.8 Other disorders of electrolyte and fluid balance, not elsewhere classified
CPT/HCPCS: 88307; 74177; 80048; 80053; 81003; 83605; 83690; 83735; 85014; 85018; 85025; 85027; 86850; 86900; 86901; 96361; 96374; 96375; 99285; J1335; Q9967

== ENCOUNTER 2023-12-11 04:43 | Observation (INO) | payer OTHER, SELFPAY ==
[2023-12-10 23:48] VITALS: BP 166/98
[2023-12-11] VITALS (8 sets, daily range): BP systolic 119–160; BP diastolic 67–92; BMI 25.4; BMI 25.1
--- NOTE | 2023-12-11 | ED.GENMED ---
History of Present Illness
General
Chief Complaint: Abdominal Pain
Source: patient and previous hospital records (Hospitalization September 27 to October 01 of this year for acute small bowel obstruction related to incarcerated left lower quadrant for Anabella hernia.)
Exam Limitations: none
Time Seen by Provider: 12/10/23 23:51
Nursing documentation reviewed up to this point in time: agreed with
Travel History
Have you had any contact with someone who has COVID-19?: No
Do you have any symptoms of coronavirus? Fever > 100 degrees, chills, cough, shortness of breath, sore throat, loss of taste or smell, muscle aches, or headache?: No
History of Present Illness
History of Present Illness:
This is a 68-year-old woman with history of hypertension, hyperlipidemia, hypothyroidism who was hospitalized here in September for acute small bowel obstruction related to incarcerated left lower quadrant for spigelian hernia requiring surgical
repair�small bowel resection. She was noted to have acute kidney injury initially related to dehydration with initial creatinine 1.2, normalized with IV fluids.
She has done well postoperatively but does admit to occasional mild discomfort left lower quadrant usually after consuming a large meal. Uneventful vacation in [facility] in October for which she returned to November 19. 4 days thereafter however she developed
somewhat abrupt onset of generalized upper abdominal pain accompanied with nausea and vomiting, symptoms slowly improved over 2 to 3 days and resolved.
Today, early afternoon she developed somewhat similar but milder generalized upper abdominal discomfort that has persisted and has gotten progressively worse throughout the day with onset of nausea and vomiting since 5 PM as well as passing
approximately 3 loose stools. She denies hematemesis nor hematochezia, denies black or tarry stools. She denies fevers or chills. No back pain or chest pain. Abdominal pain is constant with intermittent waves of severe pain.
Pain is somewhat reminiscent to her small bowel obstruction in September however in different area, more located generally to her upper abdomen when prior small bowel obstruction was located left lower quadrant.
She denies dysuria and urgency nor hematuria, no flank pain but does note somewhat decreased urinary output this evening and admits to limited oral intake today due to pain and nausea.
Past History
Past History
ED Past Medical History: HTN, Hypercholesterolemia, Hypothyroidism, Psychiatric (Depression) and Other (Nonspecific autonomic nervous system disorder)
ED Past Surgical History: Bowel resection (Left lower quadrant spigelian hernia repair with small bowel resection September 2023), and Gynecological (Hysterectomy with bladder repair)
Social History
Tobacco: Non-smoker
Alcohol: Occasional
Personal:
Living: with family
Employment: Retired
Family History
Family History: Other (Noncontributory)
Phy Exam
Physical Exam
Physical Exam:
GENERAL: 68-year-old woman appears her stated age, appears in moderate distress related to pain. Intermittently wincing with severe pain. Vital signs reviewed, afebrile, moderate hypertension noted.
EYE: anicteric
NECK: Supple, nontender, no meningismus, no significant adenopathy.
ENT: oral mucosa is minimally dry. No rhinorrhea.
CARDIAC: Regular rate and rhythm. no murmur.
LUNGS: Clear breath sounds bilaterally, no acute respiratory distress, no wheezes/rales/rhonchi
ABDOMEN: Soft, nondistended, moderate generalized tenderness to the upper abdomen with mild generalized tenderness mid to lower abdomen, no rebound or guarding nor rigidity, no palpable masses, mildly hyperactive bowel sounds. no cvat
NEUROLOGICAL: Alert and oriented x3, no focal neuro deficits. Gait is steady.
SKIN: Warm and dry, normal color, skin intact. No rash.
MUSCULOSKELETAL: No C/C/E. peripheral pulses are full and equal b/l. No palpable tenderness.
PSYCH: Normal and appropriate interaction.
Course
Orders/Labs/Results
Orders:
Orders
12/11/23 00:01
Urinalysis Reflex To Culture Urgent
12/11/23 00:10
HYDROmorphone [Dilaudid] 1 mg .ROUTE .STK-MED ONE
Ondansetron Injectable [Zofran] 4 mg .ROUTE .STK-MED ONE
12/11/23 00:11
0.9% Sodium Chloride 1000 ml [Nss] 1,000 ml IV BOLUS
HYDROmorphone [Dilaudid] 1 mg IV NOW STA
Ondansetron Injectable [Zofran] 4 mg IV NOW STA
12/11/23 00:13
CT Abd/pelvis W Iv Cont Urgent
Comment:
Reason For Exam: gen upper abd pain x 1 day w N/V, loose stools
12/11/23 00:22
Complete Blood Count/With Diff Urgent
Comprehensive Metabolic Panel Urgent
Lactic Acid Urgent
Lipase Urgent
Abnormal Lab Results
12/11/23
00:22
WBC 11.1 H 10^3/uL
(4.8-10.8)
RBC 4.07 L 10^6/uL
(4.20-5.40)
MCH 31.2 H pg
(27.0-31.0)
RDW 14.7 H %
(11.5-14.5)
MPV 12.7 H fL
(7.4-10.4)
Absolute Neuts (auto) 8.1 H 10^3/uL
(1.4-6.5)
Lymphocytes % 18.3 L %
(20.5-51.1)
BUN 20 H mg/dl
(7-17)
Glucose 121 H mg/dl
(70-99)
12/11/23 00:22
12/11/23 00:22
Vital Signs
Initial and Last Documented VS:
Initial Vital Signs
Temp Pulse Resp BP Pulse Ox
98.4 F 55 22 166/98 99
12/10/23 23:48 12/10/23 23:48 12/10/23 23:48 12/10/23 23:48 12/10/23 23:48
Last Documented Vital Signs
Temp Pulse Resp BP Pulse Ox
98.4 F 57 18 160/92 97
12/10/23 23:48 12/11/23 01:45 12/11/23 01:45 12/11/23 00:29 12/11/23 02:00
MDM/Problems Addressed
Differential Diagnosis Includes:
Concern for acute small bowel obstruction, acute gastroenteritis, pancreatitis, biliary colic/cholecystitis, less likely diverticulitis, gastritis.
Will initiate IV fluids, medicate for pain and nausea.
Will check labs, urinalysis and plan for CT abdomen pelvis.
Chronic conditions affecting care: HTN and Previous abdomnial surgery
*Radiology
Radiology exam reviewed: radiology read reviewed
*Pulse Oximetry
Patient hypoxic: no
*Critical Care Note
Total Time (30-74mins, 75-104mins- exclusive of procedures): Not Applicable
Update Note
Update Note:
12/11/2023 0226 AM
Patient is much more comfortable after 1 IV dose of Dilaudid and Zofran. Currently denies nausea.
Labs show minimally elevated white blood cell count of 11.1. Minimally elevated BUN of 20 but normal creatinine at 0.9, normal electrolytes, normal LFTs. Lactic acid is normal at 0.9.
CAT scan shows high-grade distal small bowel obstruction with concern for potential internal hernia. It is reassuring that lactic acid is normal and overall patient feeling improved.
[place] text to hospitalist as well as general surgery, Dr. East.
Dr. East accepts the patient onto his service.
Will continue IV fluids, n.p.o. status and recommends NG tube if nausea persist.
ED Attending Note
-
Portions of this chart may have been created with voice recognition software.� Occasional wrong word or��sound alike� substitutions may have occurred due to the inherent limitations of voice recognition software.
Discharge Plan
Departure
Patient Disposition: Admit
Date of Disposition: 12/11/23
Time of Disposition: 02:25
Admit to: Med/Surg
Admit to doctor: Cruzito
Presentation/result/management discussed w/ accepting MD/DO: gen surgery
Condition: Fair
Discharge Problem:
acute distal SBO
Prescriptions:
No Action
Adrenotone
1 cap PO DAILY
sucralfate 1 gram tablet
1 g PO BID
ondansetron HCl 4 mg tablet
4 mg PO DAILY PRN (Reason: nausea/vomiting)
sertraline 100 mg Tablet
100 mg PO DAILY
telmisartan 80 mg Tablet
80 mg PO QPM
naproxen 500 mg tablet
500 mg PO BID
rosuvastatin 5 mg Tablet
5 mg PO QPM
carvedilol phosphate 40 mg Capsule, Er Multiphase 24 Hr
40 mg PO QPM
Patient Comments:
09/28/2023: Dr demarco shows last fill for this med on 10/20/22, [facility] closed at time of interview. Called [facility], they do not fill this medications
thyroid (pork) [AUDIT INTERN Thyroid] 60 mg Tablet
60 mg PO DAILY
Patient Comments:
09/28/2023: taken w/ 15mg = 75mg
DHEA
1 cap PO QPM
Hcystene
1 cap PO QPM
Strontium
1 cap PO DAILY
Vitamin D Plus K2
1 tab PO DAILY
melatonin
1 cap PO QPM
phosphatidylserine
1 cap PO QPM
thyroid (pork) [AUDIT INTERN Thyroid] 15 mg Tablet
15 mg PO DAILY
Patient Comments:
09/28/2023: taken w/ 60mg = 75mg
acetaminophen [acetaminophen] 325 mg tablet
650 mg PO Q4HPRN PRN (Reason: mild pain) Qty: 1 0RF
tramadol 50 mg tablet
50 mg PO Q6HPRN PRN (Reason: severe pain/breakthrough pain) Qty: 7 0RF
Referrals:
Hannah Rodríguez MD [Family Provider] -
Interventions
Interventions:
*Risk Screen - Suicide Last Done: 12/10/23 23:48
*General Assessment Last Done: 12/10/23 23:48
*Neglect/Abuse Screening Last Done: 12/10/23 23:48
ED- Fall Risk Assessment Last Done: 12/10/23 23:48
*ED COVID-19 Vaccine History Last Done: 12/10/23 23:48
UR-Lcrkch-Iyrevikxyr Assessment Last Done: 12/11/23 00:38
Discharge Date and Time
Print Language: SLOVAK
[2023-12-11] MEDS: NSS 1000 IV ×4 (00:19→18:13)
[2023-12-11] MEDS: ZOFRAN 4 MG IV ×3 (00:19→18:14)
[2023-12-11] MEDS: DILAUDID 1 MG IV ×2 (00:19→02:59)
[2023-12-11 00:40] LABS: % Basophils 0.6 % (0-2); % Eosinophils 1.9 % (0-6); % Immature Granulocytes 0.4 % (0-0.5); % Lymphocytes 18.3 % (20.5-51.1); % Monocytes 5.3 % (1.7-9.3); % Neutrophils 73.5 % (42.2-75.2); Absolute Basophils 0.1 10^3/uL (0-0.2); Absolute Eosinophils 0.2 10^3/uL (0-0.7); Absolute Monocytes 0.6 10^3/uL (0.1-0.6); Absolute Neutrophils 8.1 10^3/uL (1.4-6.5); Hematocrit 37.5 % (37.0-47.0); Hemoglobin 12.7 g/dL (12.0-16.0); Mean Corp Hgb Conc. 33.9 g/dL (33.0-37.0); Mean Corpuscular Hgb 31.2 pg (27.0-31.0); Mean Corpuscular Volume 92.1 fL (81.0-99.0); Mean Platelet Volume 12.7 fL (7.4-10.4); Nucleated Red Blood Cells % 0 %; Platelet Count 151 10^3/uL (130-400); Red Blood Cell Count 4.07 10^6/uL (4.20-5.40); Red Cell Dist. Width 14.7 % (11.5-14.5); White Blood Cell Count 11.1 10^3/uL (4.8-10.8)
[2023-12-11 00:50] LABS: Lactic Acid 0.9 mmol/L (0.7-2.0)
[2023-12-11 00:51] LABS: ALT (SGPT) 11 U/L (0-35); AST (SGOT) 26 U/L (14-36); Albumin 4.4 g/dl (3.5-5.0); Alkaline Phosphatase 96 U/L (38-126); Blood Urea Nitrogen 20 mg/dl (7-17); Calcium 9.8 mg/dl (8.4-10.2); Carbon Dioxide 27 mmol/L (22-30); Chloride 103 mmol/L (98-107); Estimated Creatinine Clearance 50 ml/min; Glucose 121 mg/dl (70-99); Lipase 105 U/L (23-300); Potassium 3.9 mmol/L (3.5-5.1); Sodium 139 mmol/L (135-145); Total Bilirubin 0.9 mg/dl (0.2-1.3); Total Protein 7.2 g/dl (6.3-8.2); eGFR > 60.00
[2023-12-11 02:59] LABS: Urine Albumin Trace (Neg - Trace); Urine Bilirubin Negative (Negative); Urine Character Clear (Clear); Urine Color Yellow; Urine Glucose Negative (Negative); Urine Ketone 1+ (Negative); Urine Leukocyte Negative (Negative); Urine Nitrite Negative (Negative); Urine Occult Blood Negative (Negative); Urine Urobilinogen Negative (Neg - 1+)
--- NOTE | 2023-12-11 04:18 | HPS.HSE ---
Addendum entered and electronically signed by Wally East MD 12/11/23 08:21:
Patient seen and examined independently of admitting nurse practitioner. Agree with documented history and physical which is consistent with my current examination and evaluation.
HPI: 68-year-old female known to myself after having recently undergone repair of an incarcerated/strangulated left lower quadrant spigelian hernia with small bowel resection. Her postoperative recovery was generally unremarkable. Over the past
few weeks or so she has been having intermittent postprandial abdominal bloating, discomfort and fullness. Yesterday in the afternoon it increased in severity as far as pain and then she developed nausea and vomiting. She had 3 bowel movements
without resolution of symptoms prompting emergency department evaluation.
This a.m. her symptoms are improved after getting her last dose of pain medicine at approximately 3 AM. She still feels a bit of colicky discomfort in the right lower abdomen but nausea subsided. No flatus or bowel movement overnight since
emergency department evaluation.
Past medical history notable for hypertension, hypothyroid, nonspecific autonomic nervous system disorder, depression
Past surgical history recently notable for repair left lower quadrant spigelian hernia with small bowel resection 09/2023, previous , robotic hysterectomy
AFVSS
NAD AAOx3, resting comfortably in hospital bed
ABD: Soft, slightly protuberant but not tensely distended. Mild tenderness on palpation lower abdomen and right lower quadrant but no rebound, rigidity or guarding.
White blood cell count emergency department evaluation 11.1, platelets and hemoglobin unremarkable. Chemistry panel with elevation in BUN but remaining electrolytes LFTs lipase all normal. Lactic acid 0.9.
CT imaging reviewed as well as radiologist report. Approximately distended fluid-filled loops of small bowel but without significant gastric distention. Distal decompressed small bowel. Transition point in the right pelvis/sacral promontory area.
This does not appear to be at small bowel anastomosis but rather distal to it. Slight mesenteric edema. Slight focal area of bowel wall thickening as well in the vicinity. No pneumatosis, no ascites, no free air
Assessment: 68-year-old female admitted with small bowel obstruction and recent history suggestive of intermittent obstructions that have relieved themselves at home during her periods of fasting.
Given recent history and CT imaging identifying transition point I discussed with the patient treatment options which would include attempted conservative management versus surgical intervention with a diagnostic laparoscopy, laparoscopic lysis of
adhesions, possible open, possible bowel resection pending operative findings. I did advise patient that would lean toward surgical intervention given her recent symptoms there is high likelihood of recurrence. Patient in agreement and would like
to proceed with surgery.
Plan: Continue with bowel rest other than sips and chips for comfort today
Repeat CBC/BMP this a.m.
IV fluid hydration -increased rate
Analgesics and antiemetics as needed
Patient has been added onto the OR schedule for 12/12/2023 with myself.
Original Note:
Family Physician
-
Family Physician: Hannah Rodríguez
Chief Complaint
-
Abdominal pain
History of Present Illness
a 68 years old female present in ER with a complain of abdominal pain. Symptoms started yesterday early afternoon, with generalized upper abdominal discomfort that get worse during the day. Symptoms associated with nausea, vomiting and 3 episodes of
loose stool. Patient described the pain as constant with intermittent time of severe pain. Patient had similar episode recently that started with generalized upper abdominal pain associated with N/V and resolved over 2-3 days without intervention.
Patient with hospitalized in September with with acute SBO related to incarcerated LLQ for spigelian hernia requiring surgical repair/ small bowel resection. Patient denies fevers or chills, SOB, chest pain, dysuria, urgency or flank pain.
Medical History
Past Medical History
Past Medical History: Reports HTN, Hypercholesterolemia, Hypothyroidism, Psychiatric (Depression) and Other (Nonspecific autonomic nervous system disorder)
Past Surgical History: Reports Bowel Resection (Bowel resection (Left lower quadrant spigelian hernia repair with small bowel resection September 2023)), and Gynocological (Hysterectomy with bladder repair)
Social History
Tobacco: Non-smoker
Alcohol: Occasional
Drug: None
Personal:
Living: With Family
Employment: Retired
Family History
Family History: Not pertinent
Allergies / Home Medications
Allergies reflects when Allergies were last updated in [employer]
Home Medications with original date entered in [employer]
Allergy/Medication List:
Patient Allergies
Allergy/AdvReac Type Severity Reaction Status Date / Time
No Known Allergies Allergy Verified 12/10/23 23:48
Home Medications Table - record
�Medication �Instructions �Recorded �Confirmed
Adrenotone 1 cap PO DAILY 09/28/23 12/11/23
DHEA 1 cap PO QPM 09/28/23 12/11/23
Hcystene 1 cap PO QPM 09/28/23 12/11/23
Strontium 1 cap PO DAILY 09/28/23 12/11/23
Vitamin D Plus K2 1 tab PO DAILY 09/28/23 12/11/23
carvedilol phosphate 40 mg 40 mg PO QPM 09/28/23 12/11/23
capsule,[id number] multiphase
melatonin 1 cap PO QPM 09/28/23 12/11/23
phosphatidylserine 1 cap PO QPM 09/28/23 12/11/23
rosuvastatin 5 mg tablet 5 mg PO QPM 09/28/23 12/11/23
sertraline 100 mg tablet 100 mg PO DAILY 09/28/23 12/11/23
telmisartan 80 mg tablet 80 mg PO QPM 09/28/23 12/11/23
thyroid (pork) 15 mg tablet (SLITTER SCORER 15 mg PO DAILY 09/28/23 12/11/23
Thyroid)
thyroid (pork) 60 mg tablet (SLITTER SCORER 60 mg PO DAILY 09/28/23 12/11/23
Thyroid)
Review of Systems
-
History Source: Patient
A 12 point ROS was completed and negative except as noted: Yes
Constitutional: Reports Other (Decrease oral intake due to pain)
Abdomen/GI: Reports Abdominal Pain (Generalized upper abdominal pain ), Nausea, Vomiting and Diarrhea
: Reports No Symptoms
Musculoskeletal: Reports No Symptoms
Skin: Reports No Symptoms
Neurological: Reports No Symptoms
Physical Exam
Vital Signs
Vital Signs
Temp Pulse Resp BP Pulse Ox
98.4 F 57 18 135/85 97
12/10/23 23:48 12/11/23 01:45 12/11/23 01:45 12/11/23 03:00 12/11/23 03:15
Physical Exam
General: No Apparent Distress
Respiratory: Clear
Cardiac: Regular Rhythm
GI: Soft, Non Distended and Tender (moderate generalized )
Neuro: AO x 3
Laboratory Results
-
12/11/23 00:22
12/11/23 00:22
Laboratory Results
Lactic Acid 0.9 mmol/L (0.7-2.0) 12/11/23 00:22
Total Bilirubin 0.9 mg/dl (0.2-1.3) 12/11/23 00:22
AST 26 U/L (14-36) 12/11/23 00:22
ALT 11 U/L (0-35) 12/11/23 00:22
Alkaline Phosphatase 96 U/L (38-126) 12/11/23 00:22
Lipase 105 U/L (23-300) 12/11/23 00:22
Data Reviewed
-
Lab Data: Discussed with Patient
Impression/Plan
-
Abdomen/pelvis CT shows high-grade distal small bowel obstruction with concern for potential internal hernia.
IMPRESSION:
acute distal small bowel obstruction
PLAN:
Admit /observation/ Med-surg Dr. East (surgical service)
NPO, NG tube if nausea persist as recommended by Dr. East.
IVF
analgesics as needed
Antiemetics as needed
DVT prophylaxis Lovenox sq
Code status Full code
--- NOTE | 2023-12-11 05:47 | PTCARENOTE ---
Patient arrived from the ED at approximately 0515. Patient ambulated from stretcher to bed x1 assist. Patient AAOx3, drowsy. VSS as documented. Assessment as documented. Patient oriented to room. Bed in lowest position. Call soto within reach.
[2023-12-11 08:47] LABS: Hematocrit 36.3 % (37.0-47.0); Hemoglobin 11.9 g/dL (12.0-16.0); Mean Corp Hgb Conc. 32.8 g/dL (33.0-37.0); Mean Corpuscular Hgb 31.4 pg (27.0-31.0); Mean Corpuscular Volume 95.8 fL (81.0-99.0); Mean Platelet Volume 12.6 fL (7.4-10.4); Platelet Count 142 10^3/uL (130-400); Red Blood Cell Count 3.79 10^6/uL (4.20-5.40); White Blood Cell Count 7.2 10^3/uL (4.8-10.8)
[2023-12-11 09:02] LABS: Blood Urea Nitrogen 16 mg/dl (7-17); Calcium 8.6 mg/dl (8.4-10.2); Carbon Dioxide 28 mmol/L (22-30); Chloride 106 mmol/L (98-107); Estimated Creatinine Clearance 56 ml/min; Glucose 101 mg/dl (70-99); Potassium 4.2 mmol/L (3.5-5.1); Sodium 140 mmol/L (135-145); eGFR > 60.00
--- NOTE | 2023-12-11 12:55 | CM ---
Initial assessment completed with patient who lives with her in a 2 story townhouse with no basement, 1 step to enter, B/B on 2nd with 1/2 bath on 1st. Patient has a SPC which she uses on occasion, no in-home services. 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
independent and drove. No psychiatric hospitalizations. Pharmacy is [facility] in [place] and PCP is DR. Hannah Rodríguez. Patient reports she will have laparoscopic surgery on 12/12/23.
Anticipate no needs at discharge.
[2023-12-11] MEDS: DILAUDID 0.5 MG IV (13:13)
[2023-12-11] MEDS: DILAUDID 0.25 MG IV (18:14)
[2023-12-11] MEDS: LOVENOX 30 MG SC (18:15)
[2023-12-11] MEDS: COMPAZINE 5 MG IV (23:36)
[2023-12-12] VITALS (11 sets, daily range): BP systolic 126–163; BP diastolic 72–88
[2023-12-12] MEDS: ZOFRAN 4 MG IV (04:53)
[2023-12-12] MEDS: NSS 1000 IV ×2 (04:54→15:09)
[2023-12-12] MEDS: DILAUDID 0.25 MG IV (05:03)
[2023-12-12 06:29] LABS: Hematocrit 37.5 % (37.0-47.0); Hemoglobin 12.3 g/dL (12.0-16.0); Mean Corp Hgb Conc. 32.8 g/dL (33.0-37.0); Mean Corpuscular Hgb 31.2 pg (27.0-31.0); Mean Corpuscular Volume 95.2 fL (81.0-99.0); Mean Platelet Volume 12.9 fL (7.4-10.4); Platelet Count 133 10^3/uL (130-400); Red Blood Cell Count 3.94 10^6/uL (4.20-5.40); Red Cell Dist. Width 14.8 % (11.5-14.5); White Blood Cell Count 8.1 10^3/uL (4.8-10.8)
[2023-12-12 06:57] LABS: Blood Urea Nitrogen 13 mg/dl (7-17); Calcium 8.6 mg/dl (8.4-10.2); Carbon Dioxide 21 mmol/L (22-30); Chloride 106 mmol/L (98-107); Estimated Creatinine Clearance 56 ml/min; Glucose 75 mg/dl (70-99); Potassium 3.6 mmol/L (3.5-5.1); Sodium 138 mmol/L (135-145); eGFR > 60.00
--- NOTE | 2023-12-12 12:05 | PTCARENOTE ---
Patient off the floor to the OR for laparoscopic surgery. Recent vitals: HR 62, BP 152/81, RR 20, pulse ox 98% on RA, temp 99.5.
--- NOTE | 2023-12-12 14:04 | W.IMMPOSTOP ---
Addendum entered and electronically signed by Wally East MD 12/12/23 14:22:
#[id number]
Original Note:
Surgical Immed Post Op Note
-
Primary Surgeon: Cruzito
Assisting Surgeon: Erum DAWSON
Pre-op Diagnosis: Small bowel obstruction
Post-op Diagnosis: High-grade small bowel obstruction; umbilical hernia (2cm)
Procedure Performed: Laparoscopic lysis of adhesions, open umbilical hernia repair
Anesthesia Type: GETA +0.25% Marcaine
Specimen / Cultures: None
Estimated Blood Loss: 10 mL
Complications: None immediate
Operative Findings: Incidental umbilical hernia, utilized as laparoscopic site for [place] entry. Closed primarily with 0 PDS at end of procedure. Small bowel adhesion distal to previous anastomosis with resultant internal hernia and high-grade
partial obstruction. Adhesion sharply lysed with scissors. Bowel obstruction relieved. No ischemia, bowel wall thickening or significant edema. Small bowel distally ran and no additional adhesions noted. Cursory inspection of proximal distended
loops also without adhesions. Recent small bowel anastomosis widely patent and appears healthy. No additional findings noted.
Left voicemail message on 's phone postoperatively as update
--- NOTE | 2023-12-12 14:36 | CM ---
Laparoscopic lysis of adhesions, open umbilical hernia repair on this date. Anticipate no needs at discharge. Will continue to follow medical progression should needs change.
[2023-12-12] MEDS: LOVENOX 30 MG SC (17:15)
[2023-12-13] MEDS: NSS 1000 IV ×2 (00:32→08:30)
[2023-12-13] MEDS: TYLENOL 650 MG PO ×2 (03:07→23:17)
[2023-12-13 03:28] VITALS: BP 138/79
[2023-12-13 07:10] VITALS: BP 150/75
[2023-12-13 07:53] LABS: % Basophils 0.3 % (0-2); % Eosinophils 2.9 % (0-6); % Immature Granulocytes 0.5 % (0-0.5); % Lymphocytes 25.8 % (20.5-51.1); % Monocytes 9.2 % (1.7-9.3); % Neutrophils 61.3 % (42.2-75.2); Absolute Eosinophils 0.2 10^3/uL (0-0.7); Absolute Lymphocytes 1.6 10^3/uL (1.2-3.4); Absolute Monocytes 0.6 10^3/uL (0.1-0.6); Absolute Neutrophils 3.8 10^3/uL (1.4-6.5); Hematocrit 28.5 % (37.0-47.0); Mean Corpuscular Hgb 31.2 pg (27.0-31.0); Mean Corpuscular Volume 91.6 fL (81.0-99.0); Mean Platelet Volume 12.7 fL (7.4-10.4); Nucleated Red Blood Cells % 0 %; Platelet Count 106 10^3/uL (130-400); Red Blood Cell Count 3.11 10^6/uL (4.20-5.40); Red Cell Dist. Width 14.8 % (11.5-14.5); White Blood Cell Count 6.1 10^3/uL (4.8-10.8)
[2023-12-13 07:57] LABS: Blood Urea Nitrogen 11 mg/dl (7-17); Calcium 8.3 mg/dl (8.4-10.2); Carbon Dioxide 23 mmol/L (22-30); Chloride 105 mmol/L (98-107); Estimated Creatinine Clearance 65 ml/min; Glucose 98 mg/dl (70-99); Potassium 3.9 mmol/L (3.5-5.1); Sodium 135 mmol/L (135-145); eGFR > 60.00
[2023-12-13 07:58] LABS: Hemoglobin 9.7 g/dL (12.0-16.0)
[2023-12-13 11:10] VITALS: BP 152/81
--- NOTE | 2023-12-13 11:21 | W.PN.GS2 ---
Addendum entered and electronically signed by Yehuda Bang MD 12/13/23 14:43:
I saw and examined the patient.
The CLIENT LIAISON's note was reviewed and I agree with the note.
Comment:
POD 1 lap BANDAR for single adhesive band
Doing well. Denies N/V. Pain controlled. Passing flatus, no BMs. Voiding.
AFVSS, ABD soft, nondistended, appropriately tender, about 3-4 cm subcutaneous hematoma around the right lateral incision, not expanding; incisions well-approximated without erythema or drainage
WBC 6.1 Hb 9.7, repeat 10.2
� Okay for clears
� Continue pain control with Tylenol and Dilaudid as needed
� OOB, encourage IS, ambulate twice daily
� Continue DVT PPx with Lovenox; Hb stable on repeat
Original Note:
Today's Communication / Plan
-
OOB/Ambulate
Clear liquids
Assessment / Plan
-
Ms Malcolm is a 68 yo female who presented with high grade sbo and is now POD #1 lap lysis of adhesions, open umbilical hernia repair
AFVSS
Mild acute blood loss anemia noted. Suspect d/t fluid shifts, expected losses and small hematoma to the right port site
+flatus
--Start clear liquids and follow for tolerance
--Continue IVF until good PO intake
--VTE ppx with SCD's, currently on Lovenox SQ
--Trend h/h, may need to hold Lovenox if trending down
--analgesics/antiemetics as needed
--OOB/ambulate
--IS while awake
Subjective Data
-
Date of Service: December 13, 2023
Patient seen and examined at bedside. Denies n/v. Passing a little flatus this am. Right port site with soreness, otherwise minimal pain.
Objective Data
-
Intake and Output
12/12/23 12/13/23 12/14/23
06:59 06:59 06:59
Intake Total 240 / 240 1300 / 1300
Output Total 100 / 100
Balance 240 / 240 1200 / 1200
Intake:
Oral fluids 240 / 240
IV fluids (Total) 1300 / 1300
normosol 100 / 100
Output:
Urine, [place] 100 / 100
Other:
Number of approximated MODERATE 1 3
amounts of urine
Vital Signs
Temp Pulse Resp BP Pulse Ox
98.5 F 49 16 150/75 99
12/13/23 07:10 12/13/23 07:10 12/13/23 07:10 12/13/23 07:10 12/13/23 07:10
Lab Results
12/13/23 07:22
Calcium 8.3 mg/dl (8.4-10.2) L 12/13/23 07:22
Total Bilirubin 0.9 mg/dl (0.2-1.3) 12/11/23 00:22
AST 26 U/L (14-36) 12/11/23 00:22
ALT 11 U/L (0-35) 12/11/23 00:22
Alkaline Phosphatase 96 U/L (38-126) 12/11/23 00:22
Total Protein 7.2 g/dl (6.3-8.2) 12/11/23 00:22
Albumin 4.4 g/dl (3.5-5.0) 12/11/23 00:22
Physical Exam
-
NAD AAOx3
ABD: soft, ND, minimal tenderness
right port site with hematoma noted
midline incision with intact dressing
[2023-12-13] MEDS: DILAUDID 0.25 MG IV (11:43)
[2023-12-13 12:17] LABS: Hematocrit 30.8 % (37.0-47.0); Hemoglobin 10.2 g/dL (12.0-16.0)
--- NOTE | 2023-12-13 12:43 | PTCARENOTE ---
Patient with small hematoma to the right port site. Surgical team aware.
[2023-12-13 15:15] VITALS: BP 152/91
[2023-12-13] MEDS: LOVENOX 30 MG SC (17:53)
[2023-12-13 23:27] VITALS: BP 148/87
[2023-12-14 07:10] VITALS: BP 165/94
[2023-12-14 08:47] LABS: Hematocrit 30.9 % (37.0-47.0); Hemoglobin 10.5 g/dL (12.0-16.0); Mean Corpuscular Volume 91.2 fL (81.0-99.0); Red Blood Cell Count 3.39 10^6/uL (4.20-5.40); Red Cell Dist. Width 14.8 % (11.5-14.5); White Blood Cell Count 5.7 10^3/uL (4.8-10.8)
[2023-12-14 09:09] LABS: Blood Urea Nitrogen 6 mg/dl (7-17); Calcium 8.8 mg/dl (8.4-10.2); Carbon Dioxide 27 mmol/L (22-30); Chloride 104 mmol/L (98-107); Estimated Creatinine Clearance 75 ml/min; Glucose 91 mg/dl (70-99); Potassium 3.6 mmol/L (3.5-5.1); Sodium 138 mmol/L (135-145); eGFR > 60.00
--- NOTE | 2023-12-14 12:08 | W.PN.GS2 ---
Addendum entered and electronically signed by Yehuda Bang MD 12/14/23 12:47:
I saw and examined the patient.
The PUBLICATIONS SALES REPRESENTATIVE's note was reviewed and I agree with the note.
Comment:
POD 2 lap BANDAR for single adhesive band
Doing well. Denies N/V. Pain controlled. Passing flatus, no BMs. Voiding.
AFVSS, ABD soft, nondistended, appropriately tender, about 3-4 cm subcutaneous hematoma around the right lateral incision, stable; incisions well-approximated without erythema or drainage
WBC 7.7 Hb 10.5 from 10.2
� Okay for low residue
� Continue pain control with Tylenol and Dilaudid as needed
� OOB, encourage IS, ambulate twice daily
� Continue DVT PPx with Lovenox
Dispo � okay for DC later if tolerating low residue
Original Note:
Today's Communication / Plan
-
Diet advancement
Dispo planning
Assessment / Plan
-
Ms Malcolm is a 68 yo female who presented with high grade sbo and is now POD #2 lap lysis of adhesions, open umbilical hernia repair
AFVSS
Mild acute blood loss anemia noted. Suspect d/t fluid shifts, expected losses and small hematoma to the right port site. H/H stable on repeat.
+flatus
--Advance to LRD
--VTE ppx with SCD's, Lovenox SQ
--analgesics/antiemetics as needed
--OOB/ambulate
--IS while awake
discharge later today vs tomorrow pending diet tolerance
Subjective Data
-
Date of Service: December 14, 2023
Patient seen and examined at bedside with Dr. Bang. Denies n/v. Tolerating diet thus far. Passing flatus, no BM as yet. Discomfort minimal.
Objective Data
-
Intake and Output
06/12/14/23 12/15/23
06:59 06:59 06:59
Intake Total 1300 / 1300 2580 / 2580
Output Total 100 / 100
Balance 1200 / 1200 2579 / 2580
Intake:
Oral fluids 2579 / 2579
IV fluids (Total) 1300 / 1300
normosol 100 / 100
Output:
Urine, [place] 100 / 100
Other:
Number of approximated MODERATE 3 3
amounts of urine
Number of approximated LARGE 2
amounts of urine
Vital Signs
Temp Pulse Resp BP Pulse Ox
98.2 F 54 16 165/94 97
12/14/23 07:10 12/14/23 07:10 12/14/23 07:10 12/14/23 07:10 12/14/23 07:10
Lab Results
12/14/23 07:23
12/14/23 07:23
Calcium 8.8 mg/dl (8.4-10.2) 12/14/23 07:23
Total Bilirubin 0.9 mg/dl (0.2-1.3) 12/11/23 00:22
AST 26 U/L (14-36) 12/11/23 00:22
ALT 11 U/L (0-35) 12/11/23 00:22
Alkaline Phosphatase 96 U/L (38-126) 12/11/23 00:22
Total Protein 7.2 g/dl (6.3-8.2) 12/11/23 00:22
Albumin 4.4 g/dl (3.5-5.0) 12/11/23 00:22
Physical Exam
-
NAD AAOx3
ABD: soft, ND, minimal tenderness
right port site with hematoma noted: resolving
midline incision with intact glue, port sites well approximated with intact glue
[2023-12-14 12:15] LABS: Mean Platelet Volume 12.5 fL (7.4-10.4); Platelet Count 91 10^3/uL (130-400)
[2023-12-14 13:00] VITALS: BP 132/82
--- NOTE | 2023-12-14 13:27 | CM ---
met with patient at bedside.she is sp sameera/hernia repair. patient is stable for dc home with no needs.patient signed imm letter.
--- NOTE | 2023-12-14 14:04 | W.DCSUMMARY ---
Discharge Summary
Discharge Data
Date of Admission: 12/11/23
Date of Discharge: 12/14/23
-
Pending Results: No
Hospital Course
Ms. Malcolm is a 68 yo female who presented with a small bowel obstruction for which she was taken to the OR for diagnostic laparoscopy with lysis of adhesions with internal hernia noted. A primary umbilical hernia repair was preformed concurrently.
She did well in the immediate post operative period. Diet was able to be advanced and well tolerated. She had evidence of good bowel recovery and minimal post operative discomfort. She was discharged to home with outpatient follow up planned in the
coming weeks.
Discharge Plan
-
Patient Disposition: Home (Routine Discharge)
Discharge Diagnosis/Procedures: Diagnostic laparoscopy with lysis of adhesions for small bowel obstruction; primary repair of umbilical hernia
Condition: Good
Diet: Low Fiber
Activity: No strenuous activity
Additional Activity: Do not lift over 20lbs for the next 4-6 weeks
Driving Restrictions: Wait until off narcotics/comfortable twisting
Bathing Restrictions: OK to Shower
Wound Care: Ok to shower and wash wounds gently with soap and water. Avoid scrubbing or picking off glue.
Activity Restrictions/Additional Instructions:
Call your surgeon if you have worsening pain, nausea with vomiting or a fever >100.5
Referrals:
Hannah Rodríguez MD [Family Provider] -
Wally East MD [Active] - in two to three weeks
Prescriptions:
New
acetaminophen [acetaminophen] 325 mg tablet
650 mg PO Q4HPRN PRN (Reason: mild pain) Qty: 1 0RF
ibuprofen 200 mg tablet
400 - 600 mg PO Q6HPRN PRN (Reason: moderate pain) Qty: 1 0RF
oxycodone 5 mg tablet
5 mg PO Q4HPRN PRN (Reason: breakthrough/severe pain) Qty: 5 0RF
Continued
Adrenotone
1 cap PO DAILY
sertraline 100 mg Tablet
100 mg PO DAILY
telmisartan 80 mg Tablet
80 mg PO QPM
rosuvastatin 5 mg Tablet
5 mg PO QPM
carvedilol phosphate 40 mg Capsule, Er Multiphase 24 Hr
40 mg PO QPM
Patient Comments:
09/28/2023: Dr demarco shows last fill for this med on 10/20/22, [facility] closed at time of interview. Called [facility], they do not fill this medications
thyroid (pork) [RADIOLOGIST DIAGNOSTIC Thyroid] 60 mg Tablet
60 mg PO DAILY
Patient Comments:
09/28/2023: taken w/ 15mg = 75mg
Hcystene
1 cap PO QPM
Strontium
1 cap PO DAILY
Vitamin D Plus K2
1 tab PO DAILY
melatonin
1 cap PO QPM
phosphatidylserine
1 cap PO QPM
thyroid (pork) [RADIOLOGIST DIAGNOSTIC Thyroid] 15 mg Tablet
15 mg PO DAILY
Patient Comments:
09/28/2023: taken w/ 60mg = 75mg
zoledronic [id number] [Reclast] 5 mg/100 mL Piggyback
5 mg IV [id number]
Discharge Orders:
Discharge Patient (As Directed); Ordered 12/14/23
Ordered By: Zara Agosto
Discharge Date and Time
Discharge Date/Time: 12/14/23 14:42
Print Language: LAO
== END 2023-12-14 14:42 | disposition home or self-care (01) ==
LOC: 2 NORTH 04:43
PROVIDERS: Registered Nurse; Surgery; ADMITTING PHYSICIAN Surgery; EMERGENCY PHYSICIAN Emergency Medicine; FAMILY PHYSICIAN Internal Medicine
DX: K56.51 Intestinal adhesions [bands], with partial obstruction (principal); K42.9 Umbilical hernia without obstruction or gangrene; R10.10 Upper abdominal pain, unspecified; I10 Essential (primary) hypertension; E03.9 Hypothyroidism, unspecified; R79.89 Other specified abnormal findings of blood chemistry; R14.0 Abdominal distension (gaseous); D62 Acute posthemorrhagic anemia; E78.5 Hyperlipidemia, unspecified; R11.2 Nausea with vomiting, unspecified; R19.7 Diarrhea, unspecified; F32.A Depression, unspecified; E78.00 Pure hypercholesterolemia, unspecified; G90.9 Disorder of the autonomic nervous system, unspecified; Z90.49 Acquired absence of other specified parts of digestive tract; Z98.890 Other specified postprocedural states; Z90.710 Acquired absence of both cervix and uterus
CPT/HCPCS: 49320; 49591; 74177; 80048; 80053; 81003; 83605; 83690; 85014; 85018; 85025; 85027; 96361; 96374; 96375; 96376; 99285; G0378; Q9967